=== PATIENT | female | born 1980 | race Native Hawaiian/Other Pacific Islander ===

== ENCOUNTER 2018-02-10 20:26 | Emergency (ER) | payer BC ==
[~2018-02-10] VITALS: Ht 157.5 cm; Wt 117.9 kg
[~2018-02-10 20:26] MED LIST: ALPR0.2566 PO; CELEXA20 MG PO; CHLOSUS43 PO; HYDR25TA60 PO; LEVAQUIN500 MG OR; MEDROL DOSEPAK4 MG OR; METF500T PO; MONT10TA PO; SPIRONOLACT100 MG PO
[2018-02-10 20:32] VITALS: TEMP 98.6
[2018-02-10] MEDS ORDERED: PHENTERMINE15 MG PO (20:54)
[2018-02-10 21:04] LABS: PLATELET COUNT 400 K/uL (152-353)
[2018-02-10 21:20] LABS: POTASSIUM 3.9 mmol/L (3.6-5.2); SODIUM 140 mmol/L (136-145)
[2018-02-10 22:01] VITALS: BP 116/75
== END 2018-02-10 22:03 | disposition home or self-care (01) ==
LOC: ED 20:26
PROVIDERS: Internal Medicine
DX: R00.0 Tachycardia, unspecified (principal); R03.0 Elevated blood-pressure reading, without diagnosis of hypertension; D72.829 Elevated white blood cell count, unspecified
CPT/HCPCS: 36415; 80053; 82550; 84484; 85027; 93005; 99283

== ENCOUNTER 2018-09-14 08:23 | Outpatient (CLI) | payer BC ==
[~2018-09-14 08:23] MED LIST changes: +PHENTERMINE15 MG PO
== END 2018-09-14 08:52 | disposition short-term general hospital (02) ==
LOC: AMB 08:23
DX: M25.572 Pain in left ankle and joints of left foot (principal); W10.8XXA Fall (on) (from) other stairs and steps, initial encounter; Y93.89 Activity, other specified; Y92.89 Other specified places as the place of occurrence of the external cause
CPT/HCPCS: A0425; A0427

== ENCOUNTER 2021-04-26 09:35 | Emergency (ER) | payer BC ==
[~2021-04-26] VITALS: Ht 157.5 cm; Wt 117.9 kg
[2021-04-26 10:02] VITALS: TEMP 97.4
[2021-04-26 10:11] LABS: PLATELET COUNT 465 K/uL (152-353)
[2021-04-26 10:26] LABS: PARTIAL THROMBOPLASTIN TIME 25.7 SECONDS (24.5-33.6)
[2021-04-26 12:52] VITALS: BP 122/66
== END 2021-04-26 12:53 | disposition home or self-care (01) ==
LOC: ED 09:35
PROVIDERS: Emergency Medicine
DX: I47.1 Supraventricular tachycardia (principal)
CPT/HCPCS: 36415; 80053; 83880; 84484; 85027; 85379; 85610; 85730; 93005; 96360; 96361; 96375; 99284; J0153